=== PATIENT | male | born 2000 | race Caucasian/White ===

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

== ENCOUNTER 2021-09-04 23:21 | Emergency (ER) | payer OTHER, SELFPAY ==
[2021-09-04 23:22] VITALS: BP 143/83; PULSE 99; RESP 15; TEMP 36.6; O2SAT 100; BMI 28.8
--- NOTE | 2021-09-04 23:41 | EX.ED.UPPERE ---
HPI History of Present Illness Chief Complaint: Laceration Detail of Chief Complaint: Right long finger shut in car door. Informant: patient Occured/Mechanism Mechanism/Context: Yes blunt trauma Onset/Context/Timing Onset: Today Context: Sudden Onset Timing: Continuous Quality of Pain: Dull and Aching Current Severity: Mild Maximum Severity: Mild Associated Symptoms Associated Symptoms: Negative for Parasthesia, Weakness and Loss of Funtion Narrative Narrative: 21-year-old male accidentally shot his right long finger in a car door about 30 minutes ago. There is a laceration just proximal to the tip. He denies any other injuries. He is right-hand dominant. His last tetanus was less than a year ago. Tetanus Immunization: <5 years Prior similar symptoms: No Recent Illness/Hospitalization: No PFSH PFSH Medical History no medical history no medical history Home Medications No Known/Unobtainable [No Known Home Medications] 03/29/17 [History Last Taken Unknown] Allergy/AdvReac Type Severity Reaction Status Date / Time No Known Allergies Allergy Verified 03/29/17 13:55 Social History Smoking Status: Never smoker ROS ROS ED ROS Narrative Denies recent illness. Review of Systems ROS Unobtainable: Denies due to encephalopathy Constitutional Constitutional ED: Denies fever(s) Eyes Eyes: Denies change in vision ENT ENT ED: Denies ear pain Cardiovascular Cardiovascular: Denies chest pain Respiratory/Chest Respiratory/Chest: Denies cough or dyspnea Gastrointestinal Gastrointestinal: Denies abdominal pain, diarrhea, nausea or vomiting Genitourinary Genitourinary ED: Denies dysuria Musculoskeletal Musculoskeletal: Denies myalgias or neck pain Integumentary Denies rash Neurologic Neurologic: Denies headache(s) Psychiatric Psychiatric: Denies depression Endocrine Endocrinology: Denies polyuria Hematologic/Lymphatic Hematologic/Lymphatic: Denies easy bruising Allergic/Immunologic Allergic/Immunologic ED: Denies urticaria EXAM Physical Exam Narrative Exam Narrative: 21-year-old male no acute distress. Vital signs stable afebrile. Heart lung abdominal exams are unremarkable. Right hand right long finger just proximal to the tip there is about a 1-1/2 to 2 cm laceration. Involves the skin. There is dried blood. No active bleeding. There is a small amount of bruising to the subungual area to his right long finger nail about 20%. The nail itself looks undamaged. It does not need trephinated. Nor does the nail need to be removed. He has full flexion-extension of the finger. There is mild tenderness. No bony deformity. Const Vital Signs: 09/04/21 23:22 Temperature 97.9 F Temperature Source Temporal Pulse Rate 99 Respiratory Rate 15 Blood Pressure 143/83 H Blood Pressure Mean 103 Pulse Ox 100 Oxygen Delivery Method Room Air Positive well nourished and well developed; Negative for obese, cachectic, contractures or unkempt General Appearance ED: well developed and NAD; Negative for unkempt, cachectic or contractures Nutritional Appearance: Negative for cachectic or obese HEENT Reports moist mucous membranes normocephalic and atraumatic; Negative for trauma or tenderness Eyes PERRL and EOMs intact bilaterally Neck full ROM and supple General: Negative for tenderness Chest Wall inspection of chest normal and palpation of chest normal Resp normal respiratory effort and clear to auscultation bilaterally Effort and Inspection: Negative for pain with movement Auscultation: Negative for rales, rhonchi or wheezes Cardio regular rate, regular rhythm, S1 normal heart sound, S2 normal heart sound and no murmurs GI non-tender, non-distended and no masses Auscultation: normoactive bowel sounds Palpation: soft; Negative for tender or guarding Back/Spine General Back: CVA tenderness Cervical Spine: cervical spine tenderness Thoracic Spine / Upper Back: thoracic spinal tenderness Extremity normal to inspection and full ROM Extremity Narrative: Right long finger distal and just proximal to the tip on the palmar side is a 1 to 2 cm laceration. No active bleeding. 20% some ungual hematoma. Nail undamaged. No bony deformity. Normal range of motion. Normal touch sensation. General Extremety ED: Negative for edema General Extremity: Negative for edema Neuro oriented x3, moves all extremities and no focal motor deficits Sensorium / Orientation: alert, oriented to person, oriented to place and oriented to time; Negative for orientation impaired, lethargic or stuporous Motor Exam: strength 5/5 throughout Psych mental status grossly normal Appearance: Negative for unkempt Mood & Affect: Negative for depressed Skin Lesions: no lesions Rashes: no rashes Trauma: laceration; Negative for no lacerations or abrasions or abrasion MDM MDM MDM Narrative Medical decision making narrative: Patient is a laceration on his right long finger on the distal end. X-ray being obtained to rule out any fracture. His tetanus is up-to-date from a year ago. Patient cleaned the wound. It is about 1/2 cm in length. There is no active bleeding. Is not deep. I gave the patient option of having suture repaired or Dermabond skin glued and he chose the latter. I Dermabond to the wound came together nicely. He was instructed on wound care. Watch for any signs of infection. Nurses will dress it and discharge him. Procedures Lacerations Right long finger laceration: Length: 0.59 in Shape: Linear Comment: Closed using Dermabond. Patient tolerated procedure well. Proper wound closure and hemostasis was obtained. Discharge Plan Triage Chief Complaint: Laceration ED Provider: Angel Garber Dx/Rx/DC Orders Clinical Impression: Finger laceration Instructions: ED Laceration: Skin Adhesive Prescriptions: No Action No Known Home Medications RF: 0 Primary Care Provider: Lyubov Sorto Referrals: Lyubov Sorto MD [Primary Care Provider] - As Needed Activity Restrictions/Additional Instructions: Keep and clean. Watch for any signs of infection such as redness, pus, streaks, swelling or fever, if seen return. Disposition Disposition: Home, Self Care
--- NOTE | 2021-09-04 23:42 | RAD_ITS ---
STUDY: X-RAY - RIGHT HAND, ATTENTION MIDDLE FINGER REASON FOR EXAM: Male, 21 years old patient had middle finger shut in car door with associated laceration. TECHNIQUE: 3 view(s) of the finger were obtained. COMPARISON: None. FINDINGS: Normal metacarpal head. Normal metacarpophalangeal joint. Normal proximal phalanx. Normal middle phalanx. Normal distal phalanx. Normal proximal interphalangeal joint. Normal distal interphalangeal joint. There is no demonstrated fracture. There is soft tissue swelling of the finger. RAD/Finger(s) Min 2 Views IMPRESSION: Soft tissue contusion without definite evidence for acute fracture. If there is still clinical concern for acute fracture, follow-up radiographs in 7-10 days maybe helpful in evaluating a healing radiographically occult fracture. Electronically Signed: Patricia Falcon MD at 0:06 EST ,
== END 2021-09-05 00:15 | disposition home or self-care (01) ==
PROVIDERS: Emergency Provider Emergency Medicine; PCP Family Medicine; Visit Provider Emergency Medicine
DX: S61.312A Laceration without foreign body of right middle finger with damage to nail, initial encounter (principal); W23.0XXA Caught, crushed, jammed, or pinched between moving objects, initial encounter; Y92.810 Car as the place of occurrence of the external cause
CPT/HCPCS: 12001; 73140; 99283

== ENCOUNTER 2022-07-04 15:20 | Emergency (ER) | payer SELFPAY ==
[2022-07-04 15:21] VITALS: BP 149/84; PULSE 88; RESP 14; TEMP 36.1; O2SAT 98; BMI 29.5
--- NOTE | 2022-07-04 15:35 | EX.ED.GENINJ ---
HPI History of Present Illness Chief Complaint: Laceration Informant: patient Narrative Narrative: [id number] 22-year-old male presenting with injury to the back of his left hand. Patient was cutting an exhaust pipe when it fell and lacerated the dorsal aspect of his left hand. He came to the ER for further evaluation. Last tetanus in the last 2 years. Has no associated numbness or tingling. No other complaints at this time. Is not on any blood thinners. Denies any medical history. Tetanus Immunization: <5 years PFSH PFSH Home Medications cephalexin 500 mg capsule 500 mg PO TID #21 caps 07/04/22 [Rx Last Taken Unknown] Allergy/AdvReac Type Severity Reaction Status Date / Time No Known Allergies Allergy Verified 07/04/22 15:22 Surgical History (Updated 07/04/22 @ 15:44 by Priya Cotto) History of tonsillectomy Social History Smoking Status: Never smoker ROS ROS ED Constitutional Constitutional ED: Denies chills or fever(s) ENT ENT ED: Denies sore throat Cardiovascular Cardiovascular: Denies chest pain or palpitations Respiratory/Chest Respiratory/Chest: Denies cough Gastrointestinal Gastrointestinal: Denies nausea Musculoskeletal Musculoskeletal: Denies arthralgias or myalgias Integumentary Reports other Details: left hand laceration Neurologic Neurologic: Denies paresthesias Hematologic/Lymphatic Hematologic/Lymphatic: Denies easy bleeding or easy bruising EXAM Physical Exam Const Vital Signs: 07/04/22 15:21 Temperature 97.0 F L Temperature Source Temporal Pulse Rate 88 Respiratory Rate 14 Blood Pressure 149/84 H Blood Pressure Mean 105 Pulse Ox 98 Oxygen Delivery Method Room Air Positive well nourished and well developed General Appearance ED: well developed and NAD HEENT atraumatic Eyes PERRL and EOMs intact bilaterally Chest Wall inspection of chest normal and palpation of chest normal Resp normal respiratory effort and clear to auscultation bilaterally Cardio regular rhythm and no murmurs Rate: regular rate Extremity normal to inspection and full ROM General Extremety ED: Negative for deformity General Extremity: Negative for deformity Neuro oriented x3, moves all extremities, no focal motor deficits and no sensory deficits noted Skin Skin Narrative: 3 cm horizontal full-thickness laceration over the proximal, dorsal aspect of the left hand. There is exposure of the subcutaneous tissue. No active bleeding at this time. Wound edges are well approximated. PROC Procedures Lacerations left hand: Length: 1.18 in Depth: Skin Shape: Linear Prep: Sterile Conditions and Chlorhexadine Laceration repair: Irrigated, Lidocaine with epi and Local Irrigated (ml): 200 Number of Sutures/[place]: 3 Suture Information: Ethilon, Simple (1), Horizontal (2) and 4-0 MDM MDM MDM Narrative Medical decision making narrative: Patient is evaluated for laceration to his left hand. Will require suture repair. Tetanus is already up-to-date. See procedure note. Patient encouraged to follow-up with primary care doctor, now clinic or return to the ER in 10 days for wound reevaluation and suture removal. Given wound care instructions will signs and symptoms of infection. discharged home in stable and improved condition Discharge Plan Triage Chief Complaint: Laceration ED Provider: Cara Dozier Dx/Rx/DC Orders Instructions: ED Laceration Hand with ... Prescriptions: New cephalexin 500 mg capsule 500 mg PO TID Qty: 21 0RF Primary Care Provider: Lyubov Sorto Referrals: Lyubov Sorto MD [Primary Care Provider] - Activity Restrictions/Additional Instructions: Your sutures should be removed in 10 days. Any healthcare provider can remove them. You may return to the ER for suture removal. Try to keep clean and dry. Disposition Disposition: Home, Self Care
[2022-07-04] MEDS: Lidocaine 2% /Epi 1:100 (50ml) 50 ML Vial 10 ML INFILT (16:50)
== END 2022-07-04 16:52 | disposition home or self-care (01) ==
PROVIDERS: Emergency Provider Emergency Medicine; PCP Family Medicine; Visit Provider Emergency Medicine
DX: S61.412A Laceration without foreign body of left hand, initial encounter (principal); W20.8XXA Other cause of strike by thrown, projected or falling object, initial encounter
CPT/HCPCS: 12002; 99283

== ENCOUNTER 2022-10-30 15:36 | Emergency (ER) | payer SELFPAY ==
[2022-10-30 15:37] VITALS: BP 147/87; PULSE 91; RESP 16; TEMP 37; O2SAT 99
[2022-10-30 15:47] VITALS: BMI 31.7
[2022-10-30] MEDS: HYDROcodone Bitartrate/Apap 5/325 Tablet PO (16:08)
[2022-10-30] MEDS: Lidocaine 1% (20 ml mdv) 20 ML Vial INFILT (16:08)
--- NOTE | 2022-10-30 16:10 | RAD_ITS ---
INDICATION: Trauma, smashing injury left foot EXAMINATION/TECHNIQUE: X-RAY - LEFT XR Foot Min 3 Views 3 VIEWS COMPARISON: None. FINDINGS: SOFT TISSUES: No soft tissue swelling or gas. No radiopaque foreign body. BONES/JOINTS: No acute fracture. Joint spaces anatomically aligned. RAD/Foot min 3 Views IMPRESSION: No acute bony abnormality. Electronically Signed: Josep Sahu MD at 16:36 EDT ,
--- NOTE | 2022-10-30 16:11 | EDS_ITS ---
HPI History of Present Illness Chief Complaint: Lower Extremity Injury Detail of Chief Complaint: Crush injury left foot Informant: patient Narrative Narrative: Patient presents with a crush injury to his left foot. He states a 500 pound j ack fell onto his foot. He was wearing steel toed boots at the time. He has an injury to the webspace between the third and fourth toes as well as to the distal aspect of the fourth toe. He reports his tetanus is up-to-date. No other injury. PFSH PFSH Medical History no medical history no medical history Home Medications NK 10/30/22 [History Last Taken Unknown] Allergy/AdvReac Type Severity Reaction Status Date / Time No Known Allergies Allergy Verified 10/30/22 15:39 Surgical History History of tonsillectomy Social History Smoking Status: Never smoker ROS ROS ED Constitutional Constitutional ED: Denies chills or fever(s) Eyes Eyes: Denies change in vision or discharge from eye(s) ENT ENT ED: Denies discharge from eye(s), rhinorrhea or sore throat Cardiovascular Cardiovascular: Denies chest pain Respiratory/Chest Respiratory/Chest: Denies cough or dyspnea Gastrointestinal Gastrointestinal: Denies abdominal pain, nausea or vomiting Musculoskeletal Musculoskeletal: Reports extremity pain; Denies back pain Integumentary Denies rash Neurologic Neurologic: Denies headache(s) or weakness Allergic/Immunologic Allergic/Immunologic ED: Denies lip swelling or urticaria EXAM Physical Exam Const Vital Signs: 10/30/22 15:37 Temperature 98.6 F Temperature Source Temporal Pulse Rate 91 Respiratory Rate 16 Blood Pressure 147/87 H Blood Pressure Mean 107 Pulse Ox 99 Oxygen Delivery Method Room Air Positive well nourished and well developed General Appearance ED: well developed HEENT Reports moist mucous membranes Neck full ROM Chest Wall inspection of chest normal and palpation of chest normal Resp normal respiratory effort, no retractions and clear to auscultation bilaterally Cardio regular rate and regular rhythm GI non-tender Extremity Extremity Narrative: There is a small 1 cm laceration on the undersurface of the fourth toe base. There is a small, 2 mm laceration at the base of the nail of the left toe. Neuro oriented x3 MDM MDM MDM Narrative Medical decision making narrative: Left foot x-rays obtained to evaluate for fracture. Radiography Diagnostic Testing: Clinical Impression(s) from Imaging Studies Foot X-Ray 10/30/22 16:10 IMPRESSION: No acute bony abnormality. Electronically Signed: Josep Sahu MD at 16:36 EDT Reading Location ID and State: [facility] / [place] Tel , Service support , Treatment and Re-Evaluation Narrative: Left foot x-rays per my interpretation reveal no evidence of fracture. Radiology interpretation is reviewed. Digital block of the left fourth toe was performed with 4 cc 1% lidocaine. Wound is thoroughly cleansed and irrigated. A single simple interrupted suture of 5-0 Vicryl is placed in the laceration at the base of the fourth toe. Dermabond is used to seal the small laceration at the base of the nail. The nail is stable. Wound care is discussed. Patient will follow-up with his primary care physician. Discharge Plan Triage Chief Complaint: Lower Extremity Injury ED Provider: Gypsy Bautista Dx/Rx/DC Orders Clinical Impression: Crush injury of left foot, Foot laceration Instructions: ED Crush Injury, Foot/Toe, ED Laceration Extremity Prescriptions: No Action NK Primary Care Provider: Lyubov Sorto Referrals: Lyubov Sorto MD [Primary Care Provider] - 1 Week Disposition Disposition: Home, Self Care
== END 2022-10-30 17:38 | disposition home or self-care (01) ==
PROVIDERS: Emergency Provider Emergency Medicine; PCP Family Medicine; Referring Provider Emergency Medicine; Visit Provider Emergency Medicine
DX: S97.82XA Crushing injury of left foot, initial encounter (principal); S91.312A Laceration without foreign body, left foot, initial encounter; W23.0XXA Caught, crushed, jammed, or pinched between moving objects, initial encounter
CPT/HCPCS: 11760; 73630; 99283